=== PATIENT | male | born 1955 | race Caucasian/White ===

== ENCOUNTER 2023-10-31 07:35 | Day surgery (SDC) | payer BC, SELFPAY ==
[2023-10-31 07:54] VITALS: BMI 28.7
[2023-10-31 08:19] VITALS: BP 136/75; PULSE 85; RESP 16; TEMP 36.4; O2SAT 98
[2023-10-31] MEDS: LACTATED RINGERS 1000 ML 1,000 ML 100 ML IV (08:22)
[2023-10-31] MEDS: SODIUM CHLORIDE 0.9 % (FLUSH) 10 ML SYRINGE IVF (08:22)
--- NOTE | 2023-10-31 09:00 | XR_ITS ---
Final Report Patient: RODNEY VERGARA Facility:?[facility] Patient ID:?[id number] Site Patient ID:?[id number]. Site :?[id number] Study:?XRay Extremity Right 3V FOOT-10/31/2023 10:57:15 AM Ordering Physician:?DR. PALOMINO Final Report: Indication: RIGHT FIRST MPJ FUSION Technique: AP and lateral fluoroscopic images of the right forefoot. Fluoroscopic time 19.1 seconds IMPRESSION: Fluoroscopic guidance for 1st MTP fusion. Dictated by Rolando Hughes MD @ 10/31/2023 11:09:47 AM (Electronic Signature)
[2023-10-31] MEDS: BUPIVACAINE 0.5% 30 ML INJECTION (09:50)
[2023-10-31] MEDS: CEFAZOLIN 2 GM INJ IVP (10:00)
--- NOTE | 2023-10-31 11:22 | W.ANESCHARGE ---
Anesthesia Charges Start Date/Time Anesthesia Start Date: 10/31/23 Anesthesia Start Time: 09:44 Stop Date/Time Anesthesia Stop Date: 10/31/23 Anesthesia Stop Time: 11:21
[2023-10-31 11:24] VITALS: BP 121/61; PULSE 70; RESP 16; TEMP 36.2; O2SAT 97
--- NOTE | 2023-10-31 11:27 | W.PM.PODPROC ---
Date of Procedure: 10/31/23 Surgeon: Koko Morel DPM Pre-op Diagnosis: hallux rigidus right Post-op Diagnosis: hallux rigidus right Type of Procedure: 1st MPJ fusion right foot Indications: patient has had longstanding arthritic changes and wishes to proceed with 1st MPJ fusion. I reviewed the procedure, recovery, expectations and potential complications. These include but not limited to: Poor wound healing, infection, hardware irritation, hardware failure, nerve injury, nonunion, malunion, delayed union, under correction, over correction, potential need for future surgery, deep venous thrombosis, pulmonary embolism, complex regional pain syndrome, and . He understands risks written consent was obtained. Site marked. Procedure Description: Patient brought the operating room placed supine position on operating table. IV sedation was initiated local anesthetic injected into the right foot. He was prepped and draped in sterile fashion. Standard time-out protocol followed. Right foot was then exsanguinated and the ankle tourniquet inflated To 250 mm Hg. dorsal incision made over the 1st metatarsophalangeal joint right foot. The incision was carried down through skin subcutaneous tissues. Capsular incision was made A tissue reflected away from the 1st metatarsal head and proximal phalangeal base. Extensive and severe arthritic changes and bony spurring noted to both 1st metatarsal head and proximal phalangeal base. A rongeur and sagittal saw was used to remove the bony spurring. Guide pin was placed in the 1st metatarsal head. 20 mm Reamer used to remove the cartilage and subchondral bone. Guide pin removed and placed in the base of the proximal phalanx in the corresponding 20 mm Reamer used to remove cartilage and subchondral bone. Wound was irrigated with normal sterile saline. Opposing fusion surfaces were then fenestrated with a K-wire. Weightbearing was simulated with a metal lid and the great toe was positioned appropriately and temporarily fixated with a K-wire. C-arm confirmed position. A 3.0 mm partially-threaded headless screw was then inserted from distal medial to proximal lateral. A 6 hole dorsal plate was applied with 3 distal locking screws and 2 proximal locking screws as well as a nonlocking proximal screw. Fusion site was remodeled with a rotary bur. C-arm confirmed excellent position and hardware placement. Wound was thoroughly irrigated normal sterile saline. Excess capsular tissue excised and the capsule repaired with 3-0 Vicryl. Subcutaneous tissues reapproximated 4-0 Monocryl and skin closed with 4-0 Prolene. Sterile dressing was applied the tourniquet was released. Normal capillary fill time returned all digits. He was placed in a well-padded cam boot. He was transferred from OR to PACU vital signs stable and vascular status intact to the right foot. He was discharged per Anesthesia. He is given written and verbal postop instructions. He has oxycodone at home. He is to be non weight-bearing with crutches. He will follow-up in 2 days. complications: None apparent Anesthesia: MAC and local Hemostasis: ankle Estimated blood loss (mL): 2 Implants: Arthrex 1st MPJ fusion plate x1, 3.0 mm cortical locking screws x5, 3.0 mm nonlocking screw x1, 3.0 partially-threaded headless cannulated screw x1 Disposition: same day
[2023-10-31 11:30] VITALS: BP 123/67; PULSE 73; RESP 16; O2SAT 95
[2023-10-31 11:45] VITALS: BP 128/80; PULSE 79; RESP 16; O2SAT 95
--- NOTE | 2023-10-31 11:54 | SUR.PHASEII ---
PT down to teach crutch care to patient.
== END 2023-10-31 12:21 | disposition home or self-care (01) ==
PROVIDERS: PCP Family Medicine; Visit Provider Podiatrist
PROC: (CPT 28740; principal; 2023-10-31 09:00)
DX: M20.21 Hallux rigidus, right foot (principal)
CPT/HCPCS: 28289; 01480; 73620; 76000; 97116; 97161; A4580; C1713; J0665; J0690; J2371; J2405; J2704; J3010; J7120